=== PATIENT | female | born 1955 | race Native Hawaiian/Other Pacific Islander ===

== ENCOUNTER 2018-12-28 17:55 | Emergency (ER) | payer OTHER ==
[~2018-12-28] VITALS: Ht 170.2 cm; Wt 59.0 kg
[2018-12-28 19:46] VITALS: BP 140/80
== END 2018-12-28 19:46 | disposition home or self-care (01) ==
LOC: ED 17:55
DX: M54.5 Low back pain (principal)
CPT/HCPCS: 96372; 99283; J1885